=== PATIENT | male | born 1950 | race Asian ===

== ENCOUNTER 2023-11-26 15:49 | Emergency (ER) | payer MEDICARE ==
[~2023-11-26] VITALS: Ht 170.2 cm; Wt 81.6 kg
[2023-11-26 15:53] VITALS: BP_SYST 171; PULSE 66; RESP 18; TEMP 97.3; O2SAT 98
[2023-11-26 16:22] LABS: BASOPHILS # (AUTO) 0.1 K/uL (0.0-0.2); EOSINOPHILS # (AUTO) 0.1 K/uL (0.0-0.4); EOSINOPHILS % (AUTO) 1.4 % (0.0-4.0); HEMATOCRIT 41.7 % (36-54); HEMOGLOBIN 14.1 g/dL (14.0-18.0); LYMPHOCYTES # (AUTO) 1.3 K/uL (1.0-5.5); LYMPHOCYTES % (AUTO) 23.6 % (20.5-51.5); MEAN CORPUSCULAR HEMOGLOBIN 30 pg (27-31); MEAN CORPUSCULAR HGB CONC 34 % (32-36); MEAN CORPUSCULAR VOLUME 90 fL (79.0-98.0); MONOCYTES # (AUTO) 0.4 K/uL (0.0-1.0); MONOCYTES % (AUTO) 8.1 % (1.7-9.3); NEUTROPHILS # (AUTO) 3.6 K/uL (1.8-7.7); NEUTROPHILS % (AUTO) 65.9 % (40.0-70.0); PLATELET COUNT (AUTO) 246 K/uL (130-430); RED BLOOD CELL COUNT(AUTO) 4.66 MIL/uL (4.2-6.2); RED CELL DISTRIBUTION WIDTH 14.2 % (9.0-15.0); WHITE BLOOD COUNT (AUTO) 5.5 K/uL (4.8-10.8)
[2023-11-26 16:34] LABS: PROTHROMBIN TIME 10.5 SECS (9.5-12.5)
[2023-11-26 16:39] LABS: ANION GAP 5 (5-15); CALCIUM 8.4 mg/dL (8.4-11.0); CARBON DIOXIDE 30 mmol/L (23-29); CHLORIDE 103 mmol/L (98-107); CREATININE 1.06 mg/dL (0.55-1.30); GLUCOSE 96 mg/dL (74-106); POTASSIUM 4.1 mmol/L (3.5-5.1); SODIUM SERUM 138 mmol/L (136-145); UREA NITROGEN, BLOOD 17 mg/dL (8-21)
[2023-11-26 16:47] LABS: ALANINE AMINOTRANSFERASE 26 U/L (12-78); ALBUMIN 3.3 g/dL (3.4-4.8); ASPARTATE AMINOTRANSFERASE 7 U/L (10-37); BILIRUBIN,DIRECT 0.1 mg/dL (0.0-0.3); CREATINE KINASE, TOTAL 108 U/L (39-308); TOTAL BILIRUBIN 0.5 mg/dL (0.0-1.0)
[2023-11-26] MEDS: ASPIRIN 325 MG TABLET (ECOTRIN) PO ONE (17:31)
[2023-11-26 17:42] VITALS: BP_SYST 164; PULSE 60; RESP 16; TEMP 96.9; O2SAT 98
== END 2023-11-26 17:42 | disposition short-term general hospital (02) ==
LOC: SED 15:49
DX: I63.9 Cerebral infarction, unspecified (principal); R29.810 Facial weakness; R47.81 Slurred speech; R53.1 Weakness; E78.5 Hyperlipidemia, unspecified; Z85.46 Personal history of malignant neoplasm of prostate; Z79.899 Other long term (current) drug therapy
CPT/HCPCS: 36415; 70450-TC; 70496; 70498; 80048; 80076; 82550; 83605; 84484; 85025; 85610; 85730; 93005; 99291